=== PATIENT | male | born 1990 | race Caucasian/White ===

== ENCOUNTER 2020-08-06 21:44 | Emergency (ER) | payer MEDICAID ==
[~2020-08-06] VITALS: Ht 167.6 cm; Wt 84.0 kg
[2020-08-06] MEDS ORDERED: SODIUM CHLORIDE 0.9% 1,000 ML IV ONE (23:15)
[2020-08-06] MEDS ORDERED: ACETAMINOPHEN 325MG TABLET PO ONE (23:15)
[2020-08-06] MEDS ORDERED: CLINDAMYCIN 300 MG in DEXTROSE 5% WATER 50 ML IV ONE (23:15)
[2020-08-06] MEDS ORDERED: LIDOCAINE 1%/EPI 1:100,000 10 ML VIAL IJ ONE (23:30)
[2020-08-06] MEDS ORDERED: BACITRACIN ZINC OINT UDPKT TOP ONE (23:30)
[2020-08-06 23:59] LABS: BASOPHILS % 0.8 % (0.0-2.0); EOSINOPHILS % 2.3 % (0.0-5.0); HEMATOCRIT. 40.6 % (42.0-52.0); HEMOGLOBIN. 13.8 g/dL (14.0-18.0); LYMPHOCYTES % 25.3 % (20.0-50.0); MEAN CORPUSCULAR HEMOGLOBIN 29.3 pg (28.0-32.0); MEAN CORPUSCULAR VOLUME 86.6 fL (80.0-94.0); MEAN PLATELET VOLUME 9.1 fl (7.4-10.4); MONOCYTES % 9.2 % (2.0-8.0); NEUTROPHILS % 62.4 % (40.0-76.0); PLATELET 214 x1000/uL (130-400); RED BLOOD CELL COUNT 4.69 mill/uL (4.7-6.1); RED CELL DISTRIBUTION WIDTH 12.9 % (11.6-14.6)
[2020-08-07 00:08] LABS: CHLORIDE 108 mEq/L (98-107)
[2020-08-07 00:11] LABS: PROTHROMBIN TIME 10.9 sec (9.6-11.0)
[2020-08-07] MEDS ORDERED: LIDOCAINE HCL/EPINEPHRINE 1%-EPI 1:100,000 20 ML VIAL INFIL ONE (00:15)
[2020-08-07 02:20] VITALS: BP 130/76
== END 2020-08-07 02:21 | disposition home or self-care (01) ==
LOC: ER 21:44
DX: L02.411 Cutaneous abscess of right axilla (principal); L03.111 Cellulitis of right axilla; Z88.0 Allergy status to penicillin
CPT/HCPCS: 10060; 36415; 80053; 83605; 85025; 85610; 87040; 96365; 99284; A4217; J3490; J7030; J7040; J7060; Z7610

== ENCOUNTER 2020-08-07 23:21 | Emergency (ER) | payer MEDICAID ==
[~2020-08-07] VITALS: Ht 167.6 cm; Wt 82.0 kg
[2020-08-08 00:44] VITALS: BP 123/78
== END 2020-08-08 00:46 | disposition home or self-care (01) ==
LOC: ER 23:21
DX: Z48.00 Encounter for change or removal of nonsurgical wound dressing (principal)
CPT/HCPCS: 99281

== ENCOUNTER 2020-09-22 20:11 | Inpatient (IN) | payer MEDICAID ==
[~2020-09-22] VITALS: Ht 172.7 cm; Wt 77.1 kg
[2020-09-22] MEDS ORDERED: CEFTRIAXONE 1 G PREMIX 50 ML IV ONE (20:30)
[2020-09-22] MEDS ORDERED: AZITHROMYCIN 500 MG in DEXT 5% WATER 250 ML IV ONE (20:30)
[2020-09-22] MEDS ORDERED: ACETAMINOPHEN 325MG TABLET PO ONE (20:30)
[2020-09-22] MEDS ORDERED: SODIUM CHLORIDE 0.9% 500 ML IV ONE (20:30)
[2020-09-22 20:49] LABS: BASOPHILS % 0.2 % (0.0-2.0); HEMATOCRIT. 47.8 % (42.0-52.0); HEMOGLOBIN. 15.7 g/dL (14.0-18.0); LYMPHOCYTES % 13.7 % (20.0-50.0); MEAN CORPUSCULAR HEMOGLOBIN 28.4 pg (28.0-32.0); MEAN CORPUSCULAR VOLUME 86.5 fL (80.0-94.0); MEAN PLATELET VOLUME 8.9 fl (7.4-10.4); MONOCYTES % 4.7 % (2.0-8.0); NEUTROPHILS % 81.4 % (40.0-76.0); PLATELET 203 x1000/uL (130-400); RED BLOOD CELL COUNT 5.53 mill/uL (4.7-6.1); RED CELL DISTRIBUTION WIDTH 13.5 % (11.6-14.6)
[2020-09-22 21:00] LABS: CHLORIDE 105 mEq/L (98-107); INR 1.1; PROTHROMBIN TIME 11.7 sec (9.6-11.0)
[2020-09-23] MEDS ORDERED: ZOLPIDEM TARTRATE 5MG TABLET PO PRN
[2020-09-23] MEDS ORDERED: MAGNESIUM/ALUMINUM HYDROXIDE/SIMETHICONE 30ML UDC PO PRN
[2020-09-23] MEDS ORDERED: ONDANSETRON HCL 4MG/2ML INJ IV PRN
[2020-09-23] MEDS ORDERED: ALBUTEROL 6.7GM HFA INHALER ORI PRN
[2020-09-23] MEDS ORDERED: PROMETHAZINE/DEXTROMETHORPHAN 6.25-15MG/5ML BOTTLE 120ML PO PRN
[2020-09-23] MEDS ORDERED: ACETAMINOPHEN 325MG TABLET PO PRN
[2020-09-23 01:00] VITALS: BP 121/74
[2020-09-23] MEDS ORDERED: DEXAMETHASONE 10 MG/ML VIAL IV NR (01:00)
[2020-09-23] MEDS ORDERED: ERGOCALCIFEROL 50000UNITS CAPSULE PO NR (01:00)
[2020-09-23 01:16] LABS: CLARITY URINE CLEAR (CLEAR); COLOR URINE YELLOW (YELLOW); KETONES URINE NEGATIVE (NEGATIVE); LEUKOCYTE ESTERASE URINE NEGATIVE (NEGATIVE); NITRITE URINE NEGATIVE (NEGATIVE); OCCULT BLOOD URINE NEGATIVE (NEGATIVE); PROTEIN URINE 1+ (NEGATIVE); SPECIFIC GRAVITY URINE 1.012 (1.005-1.030); UROBILINOGEN URINE 0.2 E.U./dL (0.2-1.0)
[2020-09-23] MEDS: ACETAMINOPHEN 325MG TABLET PO PRN (03:02)
[2020-09-23 04:00] VITALS: BP 116/66
[2020-09-23] MEDS: SODIUM CHLORIDE 0.9% INJ 3ML FLUSH IVF SCH ×3 (06:33→22:26)
[2020-09-23] MEDS: OMEPRAZOLE 20MG CAPSULE EXTENDED RELEASE PO SCH ×2 (07:37→20:28)
[2020-09-23 08:00] VITALS: BP 142/100
[2020-09-23] MEDS: DEXAMETHASONE 10 MG/ML VIAL IV SCH (08:11)
[2020-09-23] MEDS: GUAIFENESIN 600MG ER TABLET PO SCH ×2 (08:11→20:28)
[2020-09-23] MEDS: ENOXAPARIN 30MG/0.3ML SYR SUBCUT SCH ×2 (08:11→20:28)
[2020-09-23 12:00] VITALS: BP 111/73
[2020-09-23 16:00] VITALS: BP 116/72
[2020-09-23] MEDS ORDERED: CEFTRIAXONE 1,000 MG in DEXTROSE 5% WATER 50 ML IV SCH ×2 (17:00→20:00)
[2020-09-23] MEDS ORDERED: AZITHROMYCIN 500 MG in DEXT 5% WATER 250 ML IV SCH ×2 (18:00→21:00)
[2020-09-23 20:00] VITALS: BP 116/77
[2020-09-24] VITALS: BP 126/73
[2020-09-24 04:00] VITALS: BP 120/76
[2020-09-24] MEDS: SODIUM CHLORIDE 0.9% INJ 3ML FLUSH IVF SCH ×3 (05:21→21:11)
[2020-09-24 08:00] VITALS: BP 120/78
[2020-09-24] MEDS: ENOXAPARIN 30MG/0.3ML SYR SUBCUT SCH ×2 (08:36→21:09)
[2020-09-24] MEDS: OMEPRAZOLE 20MG CAPSULE EXTENDED RELEASE PO SCH (08:36)
[2020-09-24] MEDS: DEXAMETHASONE 10 MG/ML VIAL IV SCH (08:36)
[2020-09-24] MEDS: GUAIFENESIN 600MG ER TABLET PO SCH ×2 (08:36→21:09)
[2020-09-24 12:00] VITALS: BP 122/79
[2020-09-24 15:53] VITALS: BP 119/75
[2020-09-24] MEDS: ACETAMINOPHEN 325MG TABLET PO PRN (16:00)
[2020-09-24] MEDS: AZITHROMYCIN 250 MG TABLET PO SCH (17:02)
[2020-09-24 20:00] VITALS: BP 111/67
[2020-09-24] MEDS: FAMOTIDINE 20MG TABLET PO SCH (21:09)
[2020-09-25] VITALS: BP 128/76
[2020-09-25] MEDS: SODIUM CHLORIDE 0.9% INJ 3ML FLUSH IVF SCH ×3 (01:30→21:39)
[2020-09-25 04:00] VITALS: BP 119/84
[2020-09-25 08:00] VITALS: BP 126/75
[2020-09-25] MEDS: DEXAMETHASONE 10 MG/ML VIAL IV SCH (08:10)
[2020-09-25] MEDS: ENOXAPARIN 30MG/0.3ML SYR SUBCUT SCH ×2 (08:10→21:39)
[2020-09-25] MEDS: FAMOTIDINE 20MG TABLET PO SCH ×2 (08:10→21:38)
[2020-09-25] MEDS: GUAIFENESIN 600MG ER TABLET PO SCH ×2 (08:10→21:38)
[2020-09-25 12:00] VITALS: BP 117/73
[2020-09-25 16:00] VITALS: BP 122/83
[2020-09-25] MEDS: AZITHROMYCIN 250 MG TABLET PO SCH (17:18)
[2020-09-25 20:00] VITALS: BP 122/82
[2020-09-26] VITALS: BP 114/75
[2020-09-26] MEDS: BENZONATATE 200MG CAPSULE PO PRN (01:56)
[2020-09-26 04:00] VITALS: BP 111/74
[2020-09-26] MEDS: FAMOTIDINE 20MG TABLET PO SCH ×2 (06:35→20:17)
[2020-09-26] MEDS: SODIUM CHLORIDE 0.9% INJ 3ML FLUSH IVF SCH ×3 (06:35→20:29)
[2020-09-26 06:46] LABS: HEMATOCRIT. 42.1 % (42.0-52.0); HEMOGLOBIN. 14.1 g/dL (14.0-18.0); MEAN CORPUSCULAR HEMOGLOBIN 28.7 pg (28.0-32.0); MEAN CORPUSCULAR VOLUME 85.7 fL (80.0-94.0); MEAN PLATELET VOLUME 8.9 fl (7.4-10.4); PLATELET 309 x1000/uL (130-400); RED BLOOD CELL COUNT 4.91 mill/uL (4.7-6.1); RED CELL DISTRIBUTION WIDTH 12.8 % (11.6-14.6)
[2020-09-26 07:02] LABS: CHLORIDE 101 mEq/L (98-107)
[2020-09-26 08:00] VITALS: BP 116/75
[2020-09-26] MEDS: DEXAMETHASONE 10 MG/ML VIAL IV SCH (08:43)
[2020-09-26] MEDS: ENOXAPARIN 30MG/0.3ML SYR SUBCUT SCH ×2 (08:43→20:17)
[2020-09-26] MEDS: GUAIFENESIN 600MG ER TABLET PO SCH ×2 (08:43→20:17)
[2020-09-26 12:00] VITALS: BP 109/73
[2020-09-26 13:21] LABS: PLATELET ESTIMATE NORMAL
[2020-09-26 16:00] VITALS: BP 108/72
[2020-09-26] MEDS: DIPHENHYDRAMINE 50MG/ML VIAL IV PRN (17:43)
[2020-09-26] MEDS: AZITHROMYCIN 250 MG TABLET PO SCH (17:45)
[2020-09-26 20:00] VITALS: BP 115/72
[2020-09-27] VITALS: BP 121/72
[2020-09-27 04:00] VITALS: BP 123/71
[2020-09-27] MEDS: SODIUM CHLORIDE 0.9% INJ 3ML FLUSH IVF SCH ×3 (05:04→20:38)
[2020-09-27 08:00] VITALS: BP 117/71
[2020-09-27] MEDS: DEXAMETHASONE 10 MG/ML VIAL IV SCH (08:42)
[2020-09-27] MEDS: ENOXAPARIN 30MG/0.3ML SYR SUBCUT SCH ×2 (08:42→20:37)
[2020-09-27] MEDS: FAMOTIDINE 20MG TABLET PO SCH ×2 (08:42→20:37)
[2020-09-27] MEDS: ACETAMINOPHEN 325MG TABLET PO PRN (08:43)
[2020-09-27] MEDS: GUAIFENESIN 600MG ER TABLET PO SCH ×2 (08:43→20:37)
[2020-09-27] MEDS: DIPHENHYDRAMINE 50MG/ML VIAL IV PRN ×2 (08:50→21:57)
[2020-09-27 12:00] VITALS: BP 103/53
[2020-09-27 16:00] VITALS: BP 115/72
[2020-09-27 20:00] VITALS: BP 131/71
[2020-09-28] VITALS: BP 113/71
[2020-09-28 04:00] VITALS: BP 108/73
[2020-09-28] MEDS: SODIUM CHLORIDE 0.9% INJ 3ML FLUSH IVF SCH ×2 (05:45→15:30)
[2020-09-28 08:00] VITALS: BP 109/68
[2020-09-28] MEDS: FAMOTIDINE 20MG TABLET PO SCH ×2 (08:18→20:22)
[2020-09-28] MEDS: DEXAMETHASONE 10 MG/ML VIAL IV SCH (08:18)
[2020-09-28] MEDS: GUAIFENESIN 600MG ER TABLET PO SCH ×2 (08:18→20:21)
[2020-09-28] MEDS: ENOXAPARIN 30MG/0.3ML SYR SUBCUT SCH ×2 (08:19→20:22)
[2020-09-28] MEDS: DIPHENHYDRAMINE 50MG/ML VIAL IV PRN ×3 (09:12→20:22)
[2020-09-28 12:00] VITALS: BP 124/72
[2020-09-28 16:00] VITALS: BP 124/77
[2020-09-28 20:00] VITALS: BP 124/71
[2020-09-29] VITALS: BP 121/73
[2020-09-29 04:00] VITALS: BP 111/69
[2020-09-29] MEDS: SODIUM CHLORIDE 0.9% INJ 3ML FLUSH IVF SCH ×3 (05:54→21:00)
[2020-09-29] MEDS: DIPHENHYDRAMINE 50MG/ML VIAL IV PRN ×2 (05:56→23:01)
[2020-09-29 08:00] VITALS: BP 106/51
[2020-09-29] MEDS: ENOXAPARIN 30MG/0.3ML SYR SUBCUT SCH ×2 (08:26→20:46)
[2020-09-29] MEDS: FAMOTIDINE 20MG TABLET PO SCH ×2 (08:26→20:45)
[2020-09-29] MEDS: GUAIFENESIN 600MG ER TABLET PO SCH ×2 (08:26→20:45)
[2020-09-29] MEDS: DEXAMETHASONE 10 MG/ML VIAL IV SCH (09:02)
[2020-09-29 12:00] VITALS: BP 113/68
[2020-09-29 16:00] VITALS: BP 110/61
[2020-09-29] MEDS ORDERED: ERGOCALCIFEROL 50000UNITS CAPSULE PO NR (16:00)
[2020-09-29 20:28] VITALS: BP 110/69
[2020-09-30] VITALS: BP 112/57
[2020-09-30 04:00] VITALS: BP 105/55
[2020-09-30] MEDS: ACETAMINOPHEN 325MG TABLET PO PRN (05:22)
[2020-09-30] MEDS: SODIUM CHLORIDE 0.9% INJ 3ML FLUSH IVF SCH ×3 (05:22→20:53)
[2020-09-30 08:00] VITALS: BP_SYST 112; BP_SYST 177; BP_DIAS 101; BP_DIAS 64
[2020-09-30] MEDS: GUAIFENESIN 600MG ER TABLET PO SCH ×2 (09:56→20:52)
[2020-09-30] MEDS: DEXAMETHASONE 10 MG/ML VIAL IV SCH (09:56)
[2020-09-30] MEDS: FAMOTIDINE 20MG TABLET PO SCH ×2 (09:56→20:52)
[2020-09-30] MEDS: ENOXAPARIN 30MG/0.3ML SYR SUBCUT SCH ×2 (09:56→20:52)
[2020-09-30 10:03] LABS: BG BASE EXCESS 2.1 mmol/L (-2.0-2.0); BG CARBOXYHEMOGLOBIN 0.2 % (0.5-1.5); BG DEOXYHEMOGLOBIN 6.4 % (0.0-5.0); BG FRACTION INSPIRED OXYGEN 100; BG HCO3 ACT 24.9 mmol/L (22.0-26.0); BG METHEMOGLOBIN 0.3 % (0.0-1.5); BG OXYGEN SATURATION 93.6 % (92.0-98.5); BG OXYHEMOGLOBIN 93.1 % (94.0-97.0); BG PCO2 33.7 mmHg (35.0-45.0); BG PH 7.487 (7.350-7.450); BG PO2 65.9 mmHg (75.0-100.0); BG SAMPLE SITE RIGHT RADIAL; BG TOTAL HEMOGLOBIN 15.4 g/dL (12.0-18.0); BG VENT MODE MASK - NRB
[2020-09-30 12:00] VITALS: BP 113/68
[2020-09-30 16:00] VITALS: BP 115/73
[2020-09-30] MEDS: METHYLPREDNISOLONE SOD SUCC 40 MG/ML VIAL IV SCH (17:50)
[2020-09-30 20:00] VITALS: BP 103/65
[2020-10-01] VITALS: BP 99/57
[2020-10-01] MEDS: METHYLPREDNISOLONE SOD SUCC 40 MG/ML VIAL IV SCH ×3 (00:43→17:32)
[2020-10-01] MEDS: SODIUM CHLORIDE 0.9% INJ 3ML FLUSH IVF SCH ×3 (00:51→21:40)
[2020-10-01 04:00] VITALS: BP 101/68
[2020-10-01 08:00] VITALS: BP 114/65
[2020-10-01] MEDS: GUAIFENESIN 600MG ER TABLET PO SCH ×2 (08:25→21:39)
[2020-10-01] MEDS: FAMOTIDINE 20MG TABLET PO SCH ×2 (08:25→21:39)
[2020-10-01] MEDS: ENOXAPARIN 30MG/0.3ML SYR SUBCUT SCH ×2 (08:25→21:40)
[2020-10-01] MEDS: ACETAMINOPHEN 325MG TABLET PO PRN ×2 (08:26→14:28)
[2020-10-01 12:00] VITALS: BP 103/65
[2020-10-01 16:00] VITALS: BP 125/74
[2020-10-01] MEDS: BENZONATATE 200MG CAPSULE PO PRN (17:33)
[2020-10-01 20:00] VITALS: BP 120/74
[2020-10-02] VITALS (7 sets, daily range): BP systolic 98–133; BP diastolic 47–86
[2020-10-02] MEDS: METHYLPREDNISOLONE SOD SUCC 40 MG/ML VIAL IV SCH ×3 (01:28→17:14)
[2020-10-02] MEDS: SODIUM CHLORIDE 0.9% INJ 3ML FLUSH IVF SCH ×3 (06:00→22:49)
[2020-10-02 06:32] LABS: CHLORIDE 103 mEq/L (98-107)
[2020-10-02 06:38] LABS: HEMATOCRIT. 41.7 % (42.0-52.0); HEMOGLOBIN. 14.1 g/dL (14.0-18.0); MEAN CORPUSCULAR HEMOGLOBIN 29.5 pg (28.0-32.0); PHOSPHORUS 3.2 mg/dL (2.5-4.9); PLATELET 405 x1000/uL (130-400); RED BLOOD CELL COUNT 4.79 mill/uL (4.7-6.1); RED CELL DISTRIBUTION WIDTH 13.2 % (11.6-14.6)
[2020-10-02 06:40] LABS: CREATINE KINASE 37 IU/L (39-308)
[2020-10-02] MEDS: FAMOTIDINE 20MG TABLET PO SCH ×2 (08:01→20:37)
[2020-10-02] MEDS: GUAIFENESIN 600MG ER TABLET PO SCH ×2 (08:01→20:37)
[2020-10-02] MEDS: ENOXAPARIN 30MG/0.3ML SYR SUBCUT SCH ×2 (08:01→20:36)
[2020-10-02] MEDS ORDERED: IPRATROPIUM/ALBUTEROL 0.5-3(2.5)MG/3ML NEB HHN PRN (13:00)
[2020-10-02 18:20] LABS: PLATELET ESTIMATE INCREASED
[2020-10-02] MEDS: IPRATROPIUM/ALBUTEROL 0.5-3(2.5)MG/3ML NEB HHN SCH (21:16)
[2020-10-03] VITALS (9 sets, daily range): BP systolic 111–157; BP diastolic 56–100
[2020-10-03] MEDS: METHYLPREDNISOLONE SOD SUCC 40 MG/ML VIAL IV SCH ×3 (01:26→16:33)
[2020-10-03] MEDS: IPRATROPIUM/ALBUTEROL 0.5-3(2.5)MG/3ML NEB HHN SCH ×4 (02:40→21:14)
[2020-10-03] MEDS: SODIUM CHLORIDE 0.9% INJ 3ML FLUSH IVF SCH ×3 (05:42→21:33)
[2020-10-03] MEDS: FAMOTIDINE 20MG TABLET PO SCH ×2 (09:17→21:33)
[2020-10-03] MEDS: ENOXAPARIN 30MG/0.3ML SYR SUBCUT SCH ×2 (09:18→21:33)
[2020-10-03] MEDS: GUAIFENESIN 600MG ER TABLET PO SCH ×2 (09:23→21:33)
[2020-10-04] VITALS (16 sets, daily range): BP systolic 113–144; BP diastolic 58–78
[2020-10-04] MEDS ORDERED: OXYMETAZOLINE HCL NASAL SPRAY 15ML BOTHNSTRLS PRN (00:15)
[2020-10-04] MEDS: METHYLPREDNISOLONE SOD SUCC 40 MG/ML VIAL IV SCH ×3 (01:19→17:36)
[2020-10-04] MEDS: IPRATROPIUM/ALBUTEROL 0.5-3(2.5)MG/3ML NEB HHN SCH ×4 (02:24→20:50)
[2020-10-04] MEDS: SODIUM CHLORIDE 0.9% INJ 3ML FLUSH IVF SCH ×3 (06:16→22:59)
[2020-10-04] MEDS: FAMOTIDINE 20MG TABLET PO SCH ×2 (10:05→20:46)
[2020-10-04] MEDS: GUAIFENESIN 600MG ER TABLET PO SCH ×2 (10:05→20:46)
[2020-10-04] MEDS: ENOXAPARIN 30MG/0.3ML SYR SUBCUT SCH ×2 (10:06→20:47)
[2020-10-04] MEDS ORDERED: ALPRAZOLAM 0.5 MG TABLET PO PRN (16:45)
[2020-10-05] VITALS (12 sets, daily range): BP systolic 111–149; BP diastolic 60–87
[2020-10-05] MEDS: METHYLPREDNISOLONE SOD SUCC 40 MG/ML VIAL IV SCH ×3 (00:30→16:44)
[2020-10-05] MEDS: IPRATROPIUM/ALBUTEROL 0.5-3(2.5)MG/3ML NEB HHN SCH ×4 (02:14→20:35)
[2020-10-05] MEDS: FAMOTIDINE 20MG TABLET PO SCH ×2 (06:33→20:37)
[2020-10-05] MEDS: SODIUM CHLORIDE 0.9% INJ 3ML FLUSH IVF SCH ×3 (06:38→22:00)
[2020-10-05] MEDS: GUAIFENESIN 600MG ER TABLET PO SCH ×2 (08:14→20:37)
[2020-10-05] MEDS: ENOXAPARIN 30MG/0.3ML SYR SUBCUT SCH ×2 (08:17→20:37)
[2020-10-05] MEDS: METOPROLOL TARTRATE 25MG TABLET PO SCH (20:37)
[2020-10-06] VITALS (12 sets, daily range): BP systolic 111–143; BP diastolic 58–84
[2020-10-06] MEDS: METHYLPREDNISOLONE SOD SUCC 40 MG/ML VIAL IV SCH ×3 (01:21→17:03)
[2020-10-06] MEDS: IPRATROPIUM/ALBUTEROL 0.5-3(2.5)MG/3ML NEB HHN SCH ×4 (02:13→21:01)
[2020-10-06] MEDS: SODIUM CHLORIDE 0.9% INJ 3ML FLUSH IVF SCH ×3 (05:42→21:05)
[2020-10-06] MEDS: METOPROLOL TARTRATE 25MG TABLET PO SCH ×2 (09:00→21:04)
[2020-10-06] MEDS: FAMOTIDINE 20MG TABLET PO SCH ×2 (09:00→21:03)
[2020-10-06] MEDS: ENOXAPARIN 30MG/0.3ML SYR SUBCUT SCH ×2 (09:00→21:03)
[2020-10-06] MEDS: GUAIFENESIN 600MG ER TABLET PO SCH ×2 (09:00→21:04)
[2020-10-06] MEDS: ERGOCALCIFEROL 50000UNITS CAPSULE PO SCH (14:16)
[2020-10-06] MEDS: ASCORBIC ACID 500 MG TABLET PO SCH (21:04)
[2020-10-07] VITALS (12 sets, daily range): BP systolic 101–135; BP diastolic 55–82
[2020-10-07] MEDS: METHYLPREDNISOLONE SOD SUCC 40 MG/ML VIAL IV SCH ×3 (00:53→17:30)
[2020-10-07] MEDS: IPRATROPIUM/ALBUTEROL 0.5-3(2.5)MG/3ML NEB HHN SCH ×4 (01:58→21:35)
[2020-10-07] MEDS: SODIUM CHLORIDE 0.9% INJ 3ML FLUSH IVF SCH ×2 (05:16→17:30)
[2020-10-07 06:20] LABS: MEAN CORPUSCULAR VOLUME 86.7 fL (80.0-94.0); MEAN PLATELET VOLUME 9.2 fl (7.4-10.4); PLATELET 305 x1000/uL (130-400); RED BLOOD CELL COUNT 5.19 mill/uL (4.7-6.1); RED CELL DISTRIBUTION WIDTH 13.2 % (11.6-14.6)
[2020-10-07 07:18] LABS: CHLORIDE 100 mEq/L (98-107)
[2020-10-07] MEDS: ASCORBIC ACID 500 MG TABLET PO SCH ×2 (08:02→21:37)
[2020-10-07] MEDS: FAMOTIDINE 20MG TABLET PO SCH ×2 (08:03→21:35)
[2020-10-07] MEDS: GUAIFENESIN 600MG ER TABLET PO SCH ×2 (08:03→21:37)
[2020-10-07] MEDS: METOPROLOL TARTRATE 25MG TABLET PO SCH ×2 (08:03→21:37)
[2020-10-07] MEDS: ENOXAPARIN 30MG/0.3ML SYR SUBCUT SCH ×2 (08:04→21:35)
[2020-10-07 16:56] LABS: PLATELET ESTIMATE NORMAL
[2020-10-08] VITALS (12 sets, daily range): BP systolic 111–134; BP diastolic 60–79
[2020-10-08] MEDS: METHYLPREDNISOLONE SOD SUCC 40 MG/ML VIAL IV SCH ×3 (00:07→16:44)
[2020-10-08] MEDS: SODIUM CHLORIDE 0.9% INJ 3ML FLUSH IVF SCH ×4 (00:07→22:00)
[2020-10-08] MEDS: IPRATROPIUM/ALBUTEROL 0.5-3(2.5)MG/3ML NEB HHN SCH ×3 (02:47→20:42)
[2020-10-08] MEDS: FAMOTIDINE 20MG TABLET PO SCH ×2 (08:28→20:13)
[2020-10-08] MEDS: METOPROLOL TARTRATE 25MG TABLET PO SCH ×2 (08:29→20:14)
[2020-10-08] MEDS: ASCORBIC ACID 500 MG TABLET PO SCH ×2 (08:29→20:13)
[2020-10-08] MEDS: ENOXAPARIN 30MG/0.3ML SYR SUBCUT SCH ×2 (08:29→20:13)
[2020-10-08] MEDS: GUAIFENESIN 600MG ER TABLET PO SCH ×2 (08:36→20:13)
[2020-10-08 13:54] LABS: HEPATITIS B SURFACE ANTIGEN NEGATIVE
[2020-10-09] VITALS (12 sets, daily range): BP systolic 105–143; BP diastolic 55–86
[2020-10-09] MEDS: METHYLPREDNISOLONE SOD SUCC 40 MG/ML VIAL IV SCH ×3 (01:19→18:29)
[2020-10-09] MEDS: SODIUM CHLORIDE 0.9% INJ 3ML FLUSH IVF SCH ×3 (06:00→21:24)
[2020-10-09] MEDS: IPRATROPIUM/ALBUTEROL 0.5-3(2.5)MG/3ML NEB HHN SCH ×3 (08:41→20:44)
[2020-10-09] MEDS: METOPROLOL TARTRATE 25MG TABLET PO SCH ×2 (09:41→21:24)
[2020-10-09] MEDS: FAMOTIDINE 20MG TABLET PO SCH ×2 (09:41→21:23)
[2020-10-09] MEDS: GUAIFENESIN 600MG ER TABLET PO SCH ×2 (09:41→21:23)
[2020-10-09] MEDS: ASCORBIC ACID 500 MG TABLET PO SCH ×2 (09:41→21:23)
[2020-10-09] MEDS: ENOXAPARIN 30MG/0.3ML SYR SUBCUT SCH ×2 (09:41→21:22)
[2020-10-10] VITALS (12 sets, daily range): BP systolic 105–128; BP diastolic 53–73
[2020-10-10] MEDS: METHYLPREDNISOLONE SOD SUCC 40 MG/ML VIAL IV SCH ×3 (01:00→17:46)
[2020-10-10] MEDS: IPRATROPIUM/ALBUTEROL 0.5-3(2.5)MG/3ML NEB HHN SCH ×4 (01:13→20:25)
[2020-10-10] MEDS: SODIUM CHLORIDE 0.9% INJ 3ML FLUSH IVF SCH ×3 (06:00→20:53)
[2020-10-10 06:31] LABS: HEMATOCRIT. 44.6 % (42.0-52.0); HEMOGLOBIN. 14.9 g/dL (14.0-18.0); MEAN CORPUSCULAR HEMOGLOBIN 29.1 pg (28.0-32.0); MEAN PLATELET VOLUME 9.2 fl (7.4-10.4); PLATELET 258 x1000/uL (130-400); RED BLOOD CELL COUNT 5.13 mill/uL (4.7-6.1); RED CELL DISTRIBUTION WIDTH 13.1 % (11.6-14.6)
[2020-10-10 07:56] LABS: PLATELET ESTIMATE NORMAL
[2020-10-10 08:07] LABS: CHLORIDE 101 mEq/L (98-107)
[2020-10-10 08:13] LABS: C REACTIVE PROTEIN QUANT 5.6 mg/L (0.0-3.0)
[2020-10-10] MEDS: GUAIFENESIN 600MG ER TABLET PO SCH ×2 (08:44→20:52)
[2020-10-10] MEDS: ASCORBIC ACID 500 MG TABLET PO SCH ×2 (08:45→20:52)
[2020-10-10] MEDS: FAMOTIDINE 20MG TABLET PO SCH ×2 (08:45→20:52)
[2020-10-10] MEDS: METOPROLOL TARTRATE 25MG TABLET PO SCH ×2 (08:45→20:53)
[2020-10-10] MEDS: ENOXAPARIN 30MG/0.3ML SYR SUBCUT SCH ×2 (08:52→20:52)
[2020-10-10 09:19] LABS: BG BASE EXCESS 2.8 mmol/L (-2.0-2.0); BG CARBOXYHEMOGLOBIN 0.4 % (0.5-1.5); BG DEOXYHEMOGLOBIN 9.6 % (0.0-5.0); BG FRACTION INSPIRED OXYGEN 100; BG HCO3 ACT 26.4 mmol/L (22.0-26.0); BG METHEMOGLOBIN 0.3 % (0.0-1.5); BG OXYGEN SATURATION 90.3 % (92.0-98.5); BG OXYHEMOGLOBIN 89.7 % (94.0-97.0); BG PCO2 37.5 mmHg (35.0-45.0); BG PH 7.466 (7.350-7.450); BG PO2 55.4 mmHg (75.0-100.0); BG SAMPLE SITE RIGHT RADIAL; BG TOTAL HEMOGLOBIN 16.2 g/dL (12.0-18.0); BG VENT MODE HIGH FLOW
[2020-10-10] MEDS ORDERED: TEMAZEPAM 15MG CAPSULE PO PRN (16:15)
[2020-10-11] VITALS (12 sets, daily range): BP systolic 92–135; BP diastolic 46–95
[2020-10-11] MEDS: METHYLPREDNISOLONE SOD SUCC 40 MG/ML VIAL IV SCH ×3 (01:40→16:34)
[2020-10-11] MEDS: IPRATROPIUM/ALBUTEROL 0.5-3(2.5)MG/3ML NEB HHN SCH ×4 (01:55→20:45)
[2020-10-11] MEDS: SODIUM CHLORIDE 0.9% INJ 3ML FLUSH IVF SCH ×3 (06:04→20:12)
[2020-10-11] MEDS: FAMOTIDINE 20MG TABLET PO SCH ×2 (08:37→20:11)
[2020-10-11] MEDS: ENOXAPARIN 30MG/0.3ML SYR SUBCUT SCH ×2 (08:37→20:11)
[2020-10-11] MEDS: ASCORBIC ACID 500 MG TABLET PO SCH ×2 (08:37→20:11)
[2020-10-11] MEDS: GUAIFENESIN 600MG ER TABLET PO SCH ×2 (08:37→20:11)
[2020-10-11] MEDS: METOPROLOL TARTRATE 25MG TABLET PO SCH ×2 (08:39→20:12)
[2020-10-11 17:10] LABS: 25-HYDROXY VITAMIN D3 14 ng/mL (.)
[2020-10-12] VITALS (12 sets, daily range): BP systolic 108–130; BP diastolic 63–81
[2020-10-12] MEDS: METHYLPREDNISOLONE SOD SUCC 40 MG/ML VIAL IV SCH ×3 (00:51→20:03)
[2020-10-12] MEDS ORDERED: TEMAZEPAM 15MG CAPSULE PO NR (02:15)
[2020-10-12] MEDS: IPRATROPIUM/ALBUTEROL 0.5-3(2.5)MG/3ML NEB HHN SCH ×4 (02:36→20:27)
[2020-10-12] MEDS: SODIUM CHLORIDE 0.9% INJ 3ML FLUSH IVF SCH ×3 (06:10→21:23)
[2020-10-12] MEDS: ASCORBIC ACID 500 MG TABLET PO SCH ×2 (09:30→20:03)
[2020-10-12] MEDS: METOPROLOL TARTRATE 25MG TABLET PO SCH ×2 (09:32→20:03)
[2020-10-12] MEDS: GUAIFENESIN 600MG ER TABLET PO SCH ×2 (09:32→20:03)
[2020-10-12] MEDS: FAMOTIDINE 20MG TABLET PO SCH ×2 (09:32→20:03)
[2020-10-12] MEDS: ENOXAPARIN 30MG/0.3ML SYR SUBCUT SCH ×2 (09:33→20:04)
[2020-10-13] VITALS (12 sets, daily range): BP systolic 110–135; BP diastolic 59–82
[2020-10-13] MEDS: TEMAZEPAM 15MG CAPSULE PO PRN (00:20)
[2020-10-13] MEDS: IPRATROPIUM/ALBUTEROL 0.5-3(2.5)MG/3ML NEB HHN SCH ×4 (02:15→20:09)
[2020-10-13] MEDS: SODIUM CHLORIDE 0.9% INJ 3ML FLUSH IVF SCH ×3 (05:28→22:00)
[2020-10-13] MEDS: BENZONATATE 200MG CAPSULE PO PRN ×2 (06:46→16:42)
[2020-10-13] MEDS: METOPROLOL TARTRATE 25MG TABLET PO SCH ×2 (08:38→22:02)
[2020-10-13] MEDS: METHYLPREDNISOLONE SOD SUCC 40 MG/ML VIAL IV SCH ×2 (08:38→22:03)
[2020-10-13] MEDS: FAMOTIDINE 20MG TABLET PO SCH ×2 (08:38→22:02)
[2020-10-13] MEDS: ERGOCALCIFEROL 50000UNITS CAPSULE PO SCH (08:39)
[2020-10-13] MEDS: GUAIFENESIN 600MG ER TABLET PO SCH ×2 (08:39→22:02)
[2020-10-13] MEDS: ASCORBIC ACID 500 MG TABLET PO SCH ×2 (08:39→22:02)
[2020-10-13] MEDS: ENOXAPARIN 30MG/0.3ML SYR SUBCUT SCH ×2 (08:39→22:03)
[2020-10-14] VITALS (14 sets, daily range): BP systolic 99–129; BP diastolic 59–85
[2020-10-14] MEDS: IPRATROPIUM/ALBUTEROL 0.5-3(2.5)MG/3ML NEB HHN SCH ×5 (01:19→20:18)
[2020-10-14] MEDS: DIPHENHYDRAMINE 50MG/ML VIAL IV PRN (01:43)
[2020-10-14] MEDS: SODIUM CHLORIDE 0.9% INJ 3ML FLUSH IVF SCH ×3 (05:52→22:01)
[2020-10-14] MEDS: FAMOTIDINE 20MG TABLET PO SCH ×2 (07:25→21:35)
[2020-10-14] MEDS: METHYLPREDNISOLONE SOD SUCC 40 MG/ML VIAL IV SCH ×2 (09:03→22:03)
[2020-10-14] MEDS: ENOXAPARIN 30MG/0.3ML SYR SUBCUT SCH ×2 (09:04→21:42)
[2020-10-14] MEDS: ASCORBIC ACID 500 MG TABLET PO SCH ×2 (09:04→21:41)
[2020-10-14] MEDS: METOPROLOL TARTRATE 25MG TABLET PO SCH ×2 (09:05→21:41)
[2020-10-14] MEDS: GUAIFENESIN 600MG ER TABLET PO SCH ×2 (09:15→21:41)
[2020-10-14] MEDS: TEMAZEPAM 15MG CAPSULE PO PRN (21:46)
[2020-10-15] VITALS (11 sets, daily range): BP systolic 97–125; BP diastolic 52–87
[2020-10-15] MEDS: IPRATROPIUM/ALBUTEROL 0.5-3(2.5)MG/3ML NEB HHN SCH ×4 (01:08→20:44)
[2020-10-15] MEDS: SODIUM CHLORIDE 0.9% INJ 3ML FLUSH IVF SCH ×3 (05:32→22:00)
[2020-10-15] MEDS: ENOXAPARIN 30MG/0.3ML SYR SUBCUT SCH ×2 (08:42→20:35)
[2020-10-15] MEDS: METHYLPREDNISOLONE SOD SUCC 40 MG/ML VIAL IV SCH ×2 (08:42→20:36)
[2020-10-15] MEDS: ASCORBIC ACID 500 MG TABLET PO SCH ×2 (08:42→20:35)
[2020-10-15] MEDS: FAMOTIDINE 20MG TABLET PO SCH ×2 (08:42→20:36)
[2020-10-15] MEDS: METOPROLOL TARTRATE 25MG TABLET PO SCH (08:43)
[2020-10-15] MEDS: GUAIFENESIN 600MG ER TABLET PO SCH ×2 (12:29→20:35)
[2020-10-15] MEDS: METOPROLOL TARTRATE 50MG TABLET PO SCH (20:36)
[2020-10-15] MEDS: TEMAZEPAM 15MG CAPSULE PO PRN (21:25)
[2020-10-16] VITALS (12 sets, daily range): BP systolic 93–130; BP diastolic 44–85
[2020-10-16] MEDS: IPRATROPIUM/ALBUTEROL 0.5-3(2.5)MG/3ML NEB HHN SCH ×4 (02:56→20:56)
[2020-10-16] MEDS: BENZONATATE 200MG CAPSULE PO PRN ×2 (04:27→17:18)
[2020-10-16] MEDS: SODIUM CHLORIDE 0.9% INJ 3ML FLUSH IVF SCH ×3 (05:30→22:59)
[2020-10-16] MEDS: FAMOTIDINE 20MG TABLET PO SCH ×2 (07:39→20:37)
[2020-10-16] MEDS: METHYLPREDNISOLONE SOD SUCC 40 MG/ML VIAL IV SCH ×2 (09:05→20:37)
[2020-10-16] MEDS: GUAIFENESIN 600MG ER TABLET PO SCH ×2 (09:05→20:37)
[2020-10-16] MEDS: ASCORBIC ACID 500 MG TABLET PO SCH ×2 (09:06→20:37)
[2020-10-16] MEDS: ENOXAPARIN 30MG/0.3ML SYR SUBCUT SCH ×2 (09:06→20:36)
[2020-10-16] MEDS: METOPROLOL TARTRATE 50MG TABLET PO SCH ×2 (09:06→20:37)
[2020-10-16] MEDS: TEMAZEPAM 15MG CAPSULE PO PRN (20:36)
[2020-10-17] VITALS (12 sets, daily range): BP systolic 101–134; BP diastolic 56–72
[2020-10-17] MEDS: IPRATROPIUM/ALBUTEROL 0.5-3(2.5)MG/3ML NEB HHN SCH ×4 (00:48→21:34)
[2020-10-17] MEDS: TEMAZEPAM 15MG CAPSULE PO PRN (02:02)
[2020-10-17] MEDS: SODIUM CHLORIDE 0.9% INJ 3ML FLUSH IVF SCH ×3 (05:24→21:15)
[2020-10-17 06:29] LABS: HEMATOCRIT. 42.8 % (42.0-52.0); HEMOGLOBIN. 14.3 g/dL (14.0-18.0); MEAN CORPUSCULAR HEMOGLOBIN 29.4 pg (28.0-32.0); MEAN CORPUSCULAR VOLUME 88.2 fL (80.0-94.0); MEAN PLATELET VOLUME 8.4 fl (7.4-10.4); PLATELET 206 x1000/uL (130-400); RED BLOOD CELL COUNT 4.86 mill/uL (4.7-6.1); RED CELL DISTRIBUTION WIDTH 13.9 % (11.6-14.6)
[2020-10-17 06:30] LABS: CHLORIDE 105 mEq/L (98-107)
[2020-10-17 06:43] LABS: PHOSPHORUS 4.7 mg/dL (2.5-4.9)
[2020-10-17] MEDS: ENOXAPARIN 30MG/0.3ML SYR SUBCUT SCH ×2 (09:43→21:14)
[2020-10-17] MEDS: METOPROLOL TARTRATE 50MG TABLET PO SCH ×2 (09:43→21:14)
[2020-10-17] MEDS: FAMOTIDINE 20MG TABLET PO SCH ×2 (09:43→21:13)
[2020-10-17] MEDS: ASCORBIC ACID 500 MG TABLET PO SCH ×2 (09:43→21:13)
[2020-10-17] MEDS: METHYLPREDNISOLONE SOD SUCC 40 MG/ML VIAL IV SCH ×2 (09:43→21:13)
[2020-10-17] MEDS: GUAIFENESIN 600MG ER TABLET PO SCH ×2 (09:43→21:13)
[2020-10-17] MEDS: BENZONATATE 200MG CAPSULE PO PRN (09:49)
[2020-10-17 21:36] LABS: PLATELET ESTIMATE NORMAL
[2020-10-18] VITALS (12 sets, daily range): BP systolic 99–124; BP diastolic 57–83
[2020-10-18] MEDS: BENZONATATE 200MG CAPSULE PO PRN (01:42)
[2020-10-18] MEDS: IPRATROPIUM/ALBUTEROL 0.5-3(2.5)MG/3ML NEB HHN SCH ×3 (01:43→15:00)
[2020-10-18] MEDS: TEMAZEPAM 15MG CAPSULE PO PRN (03:06)
[2020-10-18] MEDS: SODIUM CHLORIDE 0.9% INJ 3ML FLUSH IVF SCH ×3 (06:19→20:31)
[2020-10-18] MEDS: ASCORBIC ACID 500 MG TABLET PO SCH ×2 (08:52→20:31)
[2020-10-18] MEDS: FAMOTIDINE 20MG TABLET PO SCH ×2 (08:52→20:31)
[2020-10-18] MEDS: GUAIFENESIN 600MG ER TABLET PO SCH ×2 (08:52→20:31)
[2020-10-18] MEDS: METOPROLOL TARTRATE 50MG TABLET PO SCH ×2 (08:52→20:31)
[2020-10-18] MEDS: METHYLPREDNISOLONE SOD SUCC 40 MG/ML VIAL IV SCH ×2 (08:53→20:31)
[2020-10-18] MEDS: ENOXAPARIN 30MG/0.3ML SYR SUBCUT SCH (20:31)
[2020-10-19] VITALS (12 sets, daily range): BP systolic 106–147; BP diastolic 53–81
[2020-10-19] MEDS: TEMAZEPAM 15MG CAPSULE PO PRN (00:04)
[2020-10-19] MEDS: IPRATROPIUM/ALBUTEROL 0.5-3(2.5)MG/3ML NEB HHN SCH ×4 (01:55→20:16)
[2020-10-19] MEDS: SODIUM CHLORIDE 0.9% INJ 3ML FLUSH IVF SCH ×3 (04:48→20:21)
[2020-10-19] MEDS: METHYLPREDNISOLONE SOD SUCC 40 MG/ML VIAL IV SCH ×2 (08:17→20:20)
[2020-10-19] MEDS: FAMOTIDINE 20MG TABLET PO SCH ×2 (08:17→20:20)
[2020-10-19] MEDS: METOPROLOL TARTRATE 50MG TABLET PO SCH ×2 (08:17→20:22)
[2020-10-19] MEDS: ASCORBIC ACID 500 MG TABLET PO SCH ×2 (08:18→20:20)
[2020-10-19] MEDS: GUAIFENESIN 600MG ER TABLET PO SCH ×2 (08:18→20:20)
[2020-10-19] MEDS: ENOXAPARIN 30MG/0.3ML SYR SUBCUT SCH ×2 (08:20→20:20)
[2020-10-20] VITALS (12 sets, daily range): BP systolic 103–121; BP diastolic 48–66
[2020-10-20] MEDS: IPRATROPIUM/ALBUTEROL 0.5-3(2.5)MG/3ML NEB HHN SCH ×4 (01:04→20:56)
[2020-10-20] MEDS: TEMAZEPAM 15MG CAPSULE PO PRN (01:36)
[2020-10-20] MEDS: SODIUM CHLORIDE 0.9% INJ 3ML FLUSH IVF SCH ×2 (06:06→22:00)
[2020-10-20] MEDS: ERGOCALCIFEROL 50000UNITS CAPSULE PO SCH (08:43)
[2020-10-20] MEDS: FAMOTIDINE 20MG TABLET PO SCH ×2 (08:43→21:00)
[2020-10-20] MEDS: METHYLPREDNISOLONE SOD SUCC 40 MG/ML VIAL IV SCH ×2 (08:43→21:48)
[2020-10-20] MEDS: GUAIFENESIN 600MG ER TABLET PO SCH ×2 (08:43→21:49)
[2020-10-20] MEDS: METOPROLOL TARTRATE 50MG TABLET PO SCH ×2 (08:43→21:00)
[2020-10-20] MEDS: ASCORBIC ACID 500 MG TABLET PO SCH ×2 (08:43→21:49)
[2020-10-20] MEDS: ENOXAPARIN 30MG/0.3ML SYR SUBCUT SCH ×2 (08:44→21:49)
[2020-10-20] MEDS: BENZONATATE 200MG CAPSULE PO PRN ×2 (10:12→18:00)
[2020-10-21] VITALS (12 sets, daily range): BP systolic 98–121; BP diastolic 50–85
[2020-10-21] MEDS: IPRATROPIUM/ALBUTEROL 0.5-3(2.5)MG/3ML NEB HHN SCH ×4 (01:40→20:42)
[2020-10-21] MEDS: TEMAZEPAM 15MG CAPSULE PO PRN ×2 (03:11→21:55)
[2020-10-21] MEDS: SODIUM CHLORIDE 0.9% INJ 3ML FLUSH IVF SCH (05:22)
[2020-10-21] MEDS: METOPROLOL TARTRATE 50MG TABLET PO SCH ×2 (08:04→08:51)
[2020-10-21] MEDS: METHYLPREDNISOLONE SOD SUCC 40 MG/ML VIAL IV SCH ×2 (08:15→21:55)
[2020-10-21] MEDS: ENOXAPARIN 30MG/0.3ML SYR SUBCUT SCH ×2 (08:16→21:56)
[2020-10-21] MEDS: GUAIFENESIN 600MG ER TABLET PO SCH ×2 (08:16→21:55)
[2020-10-21] MEDS: ASCORBIC ACID 500 MG TABLET PO SCH ×2 (08:16→21:55)
[2020-10-21] MEDS: FAMOTIDINE 20MG TABLET PO SCH ×2 (08:17→21:55)
[2020-10-22] VITALS (12 sets, daily range): BP systolic 101–128; BP diastolic 43–69
[2020-10-22] MEDS: IPRATROPIUM/ALBUTEROL 0.5-3(2.5)MG/3ML NEB HHN SCH ×4 (01:02→20:36)
[2020-10-22] MEDS: ASCORBIC ACID 500 MG TABLET PO SCH ×2 (09:05→21:22)
[2020-10-22] MEDS: METOPROLOL TARTRATE 50MG TABLET PO SCH ×2 (09:06→21:00)
[2020-10-22] MEDS: METHYLPREDNISOLONE SOD SUCC 40 MG/ML VIAL IV SCH ×2 (09:07→21:22)
[2020-10-22] MEDS: ENOXAPARIN 30MG/0.3ML SYR SUBCUT SCH ×2 (09:07→21:22)
[2020-10-22] MEDS: TEMAZEPAM 15MG CAPSULE PO PRN (23:58)
[2020-10-23] VITALS (12 sets, daily range): BP systolic 94–124; BP diastolic 51–71
[2020-10-23] MEDS: IPRATROPIUM/ALBUTEROL 0.5-3(2.5)MG/3ML NEB HHN SCH ×4 (01:00→21:03)
[2020-10-23] MEDS: METHYLPREDNISOLONE SOD SUCC 40 MG/ML VIAL IV SCH ×2 (08:50→21:45)
[2020-10-23] MEDS: ENOXAPARIN 30MG/0.3ML SYR SUBCUT SCH ×2 (08:51→21:44)
[2020-10-23] MEDS: ASCORBIC ACID 500 MG TABLET PO SCH ×2 (08:51→21:47)
[2020-10-23] MEDS: METOPROLOL TARTRATE 50MG TABLET PO SCH ×2 (08:51→21:00)
[2020-10-24] VITALS (12 sets, daily range): BP systolic 102–128; BP diastolic 42–85
[2020-10-24] MEDS: IPRATROPIUM/ALBUTEROL 0.5-3(2.5)MG/3ML NEB HHN SCH ×4 (01:04→20:22)
[2020-10-24] MEDS: METOPROLOL TARTRATE 50MG TABLET PO SCH ×2 (08:44→20:57)
[2020-10-24] MEDS: ASCORBIC ACID 500 MG TABLET PO SCH ×2 (08:45→20:57)
[2020-10-24] MEDS: METHYLPREDNISOLONE SOD SUCC 40 MG/ML VIAL IV SCH ×2 (08:45→20:56)
[2020-10-24 09:38] LABS: BG BASE EXCESS 3.9 mmol/L (-2.0-2.0); BG CARBOXYHEMOGLOBIN 0.7 % (0.5-1.5); BG DEOXYHEMOGLOBIN 3.6 % (0.0-5.0); BG FRACTION INSPIRED OXYGEN 100; BG HCO3 ACT 27.5 mmol/L (22.0-26.0); BG METHEMOGLOBIN 0.3 % (0.0-1.5); BG OXYGEN SATURATION 96.4 % (92.0-98.5); BG OXYHEMOGLOBIN 95.4 % (94.0-97.0); BG PCO2 38.1 mmHg (35.0-45.0); BG PH 7.476 (7.350-7.450); BG PO2 81.4 mmHg (75.0-100.0); BG SAMPLE SITE RIGHT RADIAL; BG TOTAL HEMOGLOBIN 14.2 g/dL (12.0-18.0); BG VENT MODE VAPOTHERM
[2020-10-24 11:02] LABS: HEMATOCRIT. 42.1 % (42.0-52.0); HEMOGLOBIN. 14.2 g/dL (14.0-18.0); MEAN CORPUSCULAR HEMOGLOBIN 29.3 pg (28.0-32.0); MEAN CORPUSCULAR VOLUME 86.9 fL (80.0-94.0); MEAN PLATELET VOLUME 7.9 fl (7.4-10.4); PLATELET 220 x1000/uL (130-400); RED BLOOD CELL COUNT 4.84 mill/uL (4.7-6.1); RED CELL DISTRIBUTION WIDTH 14.8 % (11.6-14.6)
[2020-10-24 11:07] LABS: CHLORIDE 105 mEq/L (98-107)
[2020-10-24 12:23] LABS: PLATELET ESTIMATE NORMAL
[2020-10-24] MEDS: ENOXAPARIN 30MG/0.3ML SYR SUBCUT SCH ×2 (17:42→20:54)
[2020-10-25] VITALS (12 sets, daily range): BP systolic 88–144; BP diastolic 13–68
[2020-10-25] MEDS: TEMAZEPAM 15MG CAPSULE PO PRN (00:23)
[2020-10-25] MEDS: IPRATROPIUM/ALBUTEROL 0.5-3(2.5)MG/3ML NEB HHN SCH ×4 (02:19→21:47)
[2020-10-25] MEDS: METHYLPREDNISOLONE SOD SUCC 40 MG/ML VIAL IV SCH ×2 (09:13→21:39)
[2020-10-25] MEDS: ASCORBIC ACID 500 MG TABLET PO SCH ×2 (09:13→21:39)
[2020-10-25] MEDS: METOPROLOL TARTRATE 50MG TABLET PO SCH ×2 (09:13→21:40)
[2020-10-25] MEDS: ENOXAPARIN 30MG/0.3ML SYR SUBCUT SCH ×2 (09:14→21:39)
[2020-10-26] VITALS (8 sets, daily range): BP systolic 92–112; BP diastolic 43–72
[2020-10-26] MEDS: TEMAZEPAM 15MG CAPSULE PO PRN (00:02)
[2020-10-26] MEDS: IPRATROPIUM/ALBUTEROL 0.5-3(2.5)MG/3ML NEB HHN SCH ×4 (02:39→20:40)
[2020-10-26] MEDS: ASCORBIC ACID 500 MG TABLET PO SCH ×2 (08:45→21:06)
[2020-10-26] MEDS: PREDNISONE 20MG TABLET PO SCH (08:45)
[2020-10-26] MEDS: ENOXAPARIN 30MG/0.3ML SYR SUBCUT SCH ×2 (08:47→21:06)
[2020-10-26] MEDS: METOPROLOL TARTRATE 50MG TABLET PO SCH ×2 (08:50→21:06)
[2020-10-27] VITALS (13 sets, daily range): BP systolic 91–125; BP diastolic 46–75
[2020-10-27] MEDS: IPRATROPIUM/ALBUTEROL 0.5-3(2.5)MG/3ML NEB HHN SCH ×4 (02:28→20:50)
[2020-10-27] MEDS: TEMAZEPAM 15MG CAPSULE PO PRN (02:39)
[2020-10-27] MEDS: ERGOCALCIFEROL 50000UNITS CAPSULE PO SCH (09:18)
[2020-10-27] MEDS: ENOXAPARIN 30MG/0.3ML SYR SUBCUT SCH ×2 (09:18→21:21)
[2020-10-27] MEDS: METOPROLOL TARTRATE 50MG TABLET PO SCH ×2 (09:18→21:00)
[2020-10-27] MEDS: ASCORBIC ACID 500 MG TABLET PO SCH ×2 (09:18→21:21)
[2020-10-27] MEDS: PREDNISONE 20MG TABLET PO SCH (09:18)
[2020-10-27] MEDS ORDERED: SODIUM CHLORIDE 0.9% 500 ML IV ONE (10:15)
[2020-10-27 13:15] LABS: BASOPHILS % 0.3 % (0.0-2.0); EOSINOPHILS % 4.7 % (0.0-5.0); HEMATOCRIT. 41.7 % (42.0-52.0); HEMOGLOBIN. 13.8 g/dL (14.0-18.0); LYMPHOCYTES % 7.9 % (20.0-50.0); MEAN CORPUSCULAR VOLUME 87.5 fL (80.0-94.0); MEAN PLATELET VOLUME 8.2 fl (7.4-10.4); MONOCYTES % 4.1 % (2.0-8.0); PLATELET 200 x1000/uL (130-400); RED BLOOD CELL COUNT 4.76 mill/uL (4.7-6.1); RED CELL DISTRIBUTION WIDTH 15.4 % (11.6-14.6)
[2020-10-27 13:23] LABS: CHLORIDE 106 mEq/L (98-107)
[2020-10-28] VITALS (17 sets, daily range): BP systolic 94–137; BP diastolic 47–73
[2020-10-28] MEDS: IPRATROPIUM/ALBUTEROL 0.5-3(2.5)MG/3ML NEB HHN SCH ×4 (02:35→20:15)
[2020-10-28] MEDS: ASCORBIC ACID 500 MG TABLET PO SCH ×2 (10:48→21:21)
[2020-10-28] MEDS: ENOXAPARIN 30MG/0.3ML SYR SUBCUT SCH ×2 (10:48→21:21)
[2020-10-28] MEDS: PREDNISONE 20MG TABLET PO SCH (10:49)
[2020-10-28] MEDS: METOPROLOL TARTRATE 50MG TABLET PO SCH ×2 (10:49→21:21)
[2020-10-29] VITALS (12 sets, daily range): BP systolic 92–112; BP diastolic 45–68
[2020-10-29] MEDS: IPRATROPIUM/ALBUTEROL 0.5-3(2.5)MG/3ML NEB HHN SCH ×4 (02:15→21:08)
[2020-10-29] MEDS: TEMAZEPAM 15MG CAPSULE PO PRN ×2 (03:18→22:46)
[2020-10-29] MEDS: METOPROLOL TARTRATE 50MG TABLET PO SCH ×2 (09:00→20:26)
[2020-10-29] MEDS: PREDNISONE 20MG TABLET PO SCH (09:47)
[2020-10-29] MEDS: ASCORBIC ACID 500 MG TABLET PO SCH ×2 (09:47→20:25)
[2020-10-29] MEDS: ENOXAPARIN 30MG/0.3ML SYR SUBCUT SCH ×2 (09:48→20:26)
[2020-10-30] VITALS (12 sets, daily range): BP systolic 92–113; BP diastolic 44–68
[2020-10-30] MEDS: IPRATROPIUM/ALBUTEROL 0.5-3(2.5)MG/3ML NEB HHN SCH ×4 (02:18→20:26)
[2020-10-30] MEDS: METOPROLOL TARTRATE 50MG TABLET PO SCH ×2 (08:07→21:00)
[2020-10-30] MEDS: ENOXAPARIN 30MG/0.3ML SYR SUBCUT SCH ×2 (08:08→21:28)
[2020-10-30] MEDS: PREDNISONE 20MG TABLET PO SCH (08:09)
[2020-10-30] MEDS: ASCORBIC ACID 500 MG TABLET PO SCH ×2 (08:13→21:27)
[2020-10-30] MEDS: TEMAZEPAM 15MG CAPSULE PO PRN (23:33)
[2020-10-31] VITALS (12 sets, daily range): BP systolic 96–121; BP diastolic 40–71
[2020-10-31] MEDS: IPRATROPIUM/ALBUTEROL 0.5-3(2.5)MG/3ML NEB HHN SCH ×4 (01:32→20:57)
[2020-10-31] MEDS: ASCORBIC ACID 500 MG TABLET PO SCH ×2 (08:57→22:55)
[2020-10-31] MEDS: PREDNISONE 20MG TABLET PO SCH (08:57)
[2020-10-31] MEDS: ENOXAPARIN 30MG/0.3ML SYR SUBCUT SCH ×2 (08:57→22:52)
[2020-10-31] MEDS: METOPROLOL TARTRATE 50MG TABLET PO SCH ×2 (08:58→21:00)
[2020-10-31 09:23] LABS: BG BASE EXCESS 3.3 mmol/L (-2.0-2.0); BG DEOXYHEMOGLOBIN 6.4 % (0.0-5.0); BG FRACTION INSPIRED OXYGEN 85; BG HCO3 ACT 27.4 mmol/L (22.0-26.0); BG METHEMOGLOBIN 0.3 % (0.0-1.5); BG OXYGEN SATURATION 93.5 % (92.0-98.5); BG OXYHEMOGLOBIN 92.3 % (94.0-97.0); BG PH 7.454 (7.350-7.450); BG PO2 62.1 mmHg (75.0-100.0); BG SAMPLE SITE RIGHT RADIAL; BG VENT MODE HIGH FLOW
[2020-11-01] VITALS (12 sets, daily range): BP systolic 89–115; BP diastolic 52–78
[2020-11-01] MEDS: IPRATROPIUM/ALBUTEROL 0.5-3(2.5)MG/3ML NEB HHN SCH ×4 (01:33→20:08)
[2020-11-01] MEDS: ASCORBIC ACID 500 MG TABLET PO SCH ×2 (10:41→21:34)
[2020-11-01] MEDS: METOPROLOL TARTRATE 50MG TABLET PO SCH ×2 (10:41→21:00)
[2020-11-01] MEDS: PREDNISONE 20MG TABLET PO SCH (10:41)
[2020-11-01] MEDS: ENOXAPARIN 30MG/0.3ML SYR SUBCUT SCH ×2 (10:42→21:34)
[2020-11-02] VITALS (12 sets, daily range): BP systolic 94–136; BP diastolic 51–77
[2020-11-02] MEDS: IPRATROPIUM/ALBUTEROL 0.5-3(2.5)MG/3ML NEB HHN SCH ×4 (01:45→20:33)
[2020-11-02] MEDS: TEMAZEPAM 15MG CAPSULE PO PRN (02:59)
[2020-11-02] MEDS: PREDNISONE 20MG TABLET PO SCH (07:51)
[2020-11-02] MEDS: ENOXAPARIN 30MG/0.3ML SYR SUBCUT SCH ×2 (07:51→21:37)
[2020-11-02] MEDS: ASCORBIC ACID 500 MG TABLET PO SCH ×2 (07:51→21:36)
[2020-11-02] MEDS: METOPROLOL TARTRATE 50MG TABLET PO SCH ×2 (07:51→21:00)
[2020-11-03] VITALS (13 sets, daily range): BP systolic 82–122; BP diastolic 48–67
[2020-11-03] MEDS: IPRATROPIUM/ALBUTEROL 0.5-3(2.5)MG/3ML NEB HHN SCH ×4 (01:40→20:23)
[2020-11-03] MEDS: TEMAZEPAM 15MG CAPSULE PO PRN (02:01)
[2020-11-03] MEDS: ASCORBIC ACID 500 MG TABLET PO SCH ×2 (08:35→21:24)
[2020-11-03] MEDS: ENOXAPARIN 30MG/0.3ML SYR SUBCUT SCH ×2 (08:36→21:23)
[2020-11-03] MEDS: PREDNISONE 20MG TABLET PO SCH (08:36)
[2020-11-03] MEDS: METOPROLOL TARTRATE 50MG TABLET PO SCH ×2 (08:36→21:24)
[2020-11-03] MEDS: ERGOCALCIFEROL 50000UNITS CAPSULE PO SCH (08:41)
[2020-11-03] MEDS: ACETAMINOPHEN 325MG TABLET PO PRN (17:52)
[2020-11-04] VITALS (12 sets, daily range): BP systolic 99–118; BP diastolic 55–78
[2020-11-04] MEDS: IPRATROPIUM/ALBUTEROL 0.5-3(2.5)MG/3ML NEB HHN SCH ×4 (02:06→20:59)
[2020-11-04] MEDS: PREDNISONE 20MG TABLET PO SCH (09:27)
[2020-11-04] MEDS: METOPROLOL TARTRATE 50MG TABLET PO SCH ×2 (09:28→21:18)
[2020-11-04] MEDS: ENOXAPARIN 30MG/0.3ML SYR SUBCUT SCH ×2 (09:29→21:18)
[2020-11-04] MEDS: SULFAMETHOXAZOLE/TRIMETHOPRIM 800/160MG TABLET PO SCH (16:59)
[2020-11-05] VITALS (12 sets, daily range): BP systolic 99–110; BP diastolic 54–75
[2020-11-05] MEDS: IPRATROPIUM/ALBUTEROL 0.5-3(2.5)MG/3ML NEB HHN SCH ×4 (01:56→20:51)
[2020-11-05] MEDS: ACETAMINOPHEN 325MG TABLET PO PRN (01:59)
[2020-11-05 06:47] LABS: BASOPHILS % 0.5 % (0.0-2.0); EOSINOPHILS % 1.3 % (0.0-5.0); HEMATOCRIT. 38.2 % (42.0-52.0); HEMOGLOBIN. 12.7 g/dL (14.0-18.0); LYMPHOCYTES % 23.8 % (20.0-50.0); MEAN CORPUSCULAR HEMOGLOBIN 29.3 pg (28.0-32.0); MEAN CORPUSCULAR VOLUME 88.1 fL (80.0-94.0); MEAN PLATELET VOLUME 8.6 fl (7.4-10.4); MONOCYTES % 7.2 % (2.0-8.0); NEUTROPHILS % 67.2 % (40.0-76.0); PLATELET 242 x1000/uL (130-400); RED BLOOD CELL COUNT 4.33 mill/uL (4.7-6.1); RED CELL DISTRIBUTION WIDTH 15.1 % (11.6-14.6)
[2020-11-05 07:19] LABS: CHLORIDE 103 mEq/L (98-107)
[2020-11-05] MEDS: ENOXAPARIN 30MG/0.3ML SYR SUBCUT SCH (08:23)
[2020-11-05] MEDS: PREDNISONE 20MG TABLET PO SCH (08:23)
[2020-11-05] MEDS: METOPROLOL TARTRATE 50MG TABLET PO SCH ×2 (08:26→21:00)
[2020-11-05] MEDS: SULFAMETHOXAZOLE/TRIMETHOPRIM 800/160MG TABLET PO SCH (17:24)
[2020-11-05] MEDS: GUAIFENESIN 600MG ER TABLET PO SCH (21:08)
[2020-11-05] MEDS: ENOXAPARIN 40MG/0.4ML SYR SUBCUT SCH (21:11)
[2020-11-06] VITALS (12 sets, daily range): BP systolic 92–116; BP diastolic 49–73
[2020-11-06] MEDS: IPRATROPIUM/ALBUTEROL 0.5-3(2.5)MG/3ML NEB HHN SCH ×4 (01:40→20:06)
[2020-11-06] MEDS: TEMAZEPAM 15MG CAPSULE PO PRN (02:00)
[2020-11-06] MEDS: ENOXAPARIN 40MG/0.4ML SYR SUBCUT SCH ×2 (08:36→20:50)
[2020-11-06] MEDS: PREDNISONE 20MG TABLET PO SCH (08:36)
[2020-11-06] MEDS: GUAIFENESIN 600MG ER TABLET PO SCH ×2 (08:36→20:50)
[2020-11-06] MEDS: METOPROLOL TARTRATE 50MG TABLET PO SCH ×2 (08:36→21:00)
[2020-11-06] MEDS: SULFAMETHOXAZOLE/TRIMETHOPRIM 800/160MG TABLET PO SCH (16:32)
[2020-11-07] VITALS (12 sets, daily range): BP systolic 98–116; BP diastolic 55–90
[2020-11-07] MEDS: IPRATROPIUM/ALBUTEROL 0.5-3(2.5)MG/3ML NEB HHN SCH ×4 (02:12→20:42)
[2020-11-07] MEDS: TEMAZEPAM 15MG CAPSULE PO PRN (02:45)
[2020-11-07] MEDS: METOPROLOL TARTRATE 50MG TABLET PO SCH ×2 (08:41→20:31)
[2020-11-07] MEDS: ENOXAPARIN 40MG/0.4ML SYR SUBCUT SCH ×2 (08:54→20:30)
[2020-11-07] MEDS: PREDNISONE 20MG TABLET PO SCH (08:54)
[2020-11-07] MEDS: GUAIFENESIN 600MG ER TABLET PO SCH ×2 (08:54→20:30)
[2020-11-07] MEDS: SULFAMETHOXAZOLE/TRIMETHOPRIM 800/160MG TABLET PO SCH (15:37)
[2020-11-08] VITALS (12 sets, daily range): BP systolic 93–113; BP diastolic 19–66
[2020-11-08] MEDS: IPRATROPIUM/ALBUTEROL 0.5-3(2.5)MG/3ML NEB HHN SCH ×4 (02:53→20:46)
[2020-11-08] MEDS: TEMAZEPAM 15MG CAPSULE PO PRN (03:18)
[2020-11-08] MEDS: METOPROLOL TARTRATE 50MG TABLET PO SCH ×2 (09:00→20:19)
[2020-11-08] MEDS: ENOXAPARIN 40MG/0.4ML SYR SUBCUT SCH (09:34)
[2020-11-08] MEDS: PREDNISONE 20MG TABLET PO SCH (09:34)
[2020-11-08] MEDS: GUAIFENESIN 600MG ER TABLET PO SCH ×2 (09:35→20:19)
[2020-11-08] MEDS: SULFAMETHOXAZOLE/TRIMETHOPRIM 800/160MG TABLET PO SCH (15:54)
[2020-11-08] MEDS: ENOXAPARIN 30MG/0.3ML SYR SUBCUT SCH (20:19)
[2020-11-09] VITALS (11 sets, daily range): BP systolic 98–113; BP diastolic 50–70
[2020-11-09] MEDS: IPRATROPIUM/ALBUTEROL 0.5-3(2.5)MG/3ML NEB HHN SCH ×4 (02:04→21:00)
[2020-11-09] MEDS: TEMAZEPAM 15MG CAPSULE PO PRN (02:28)
[2020-11-09] MEDS: PREDNISONE 20MG TABLET PO SCH (09:28)
[2020-11-09] MEDS: GUAIFENESIN 600MG ER TABLET PO SCH ×2 (09:29→21:06)
[2020-11-09] MEDS: METOPROLOL TARTRATE 50MG TABLET PO SCH ×2 (09:29→21:00)
[2020-11-09] MEDS: ENOXAPARIN 30MG/0.3ML SYR SUBCUT SCH (09:30)
[2020-11-09] MEDS: SULFAMETHOXAZOLE/TRIMETHOPRIM 800/160MG TABLET PO SCH (15:27)
[2020-11-10] VITALS (11 sets, daily range): BP systolic 97–113; BP diastolic 45–68
[2020-11-10] MEDS: IPRATROPIUM/ALBUTEROL 0.5-3(2.5)MG/3ML NEB HHN SCH ×4 (01:14→21:08)
[2020-11-10] MEDS: TEMAZEPAM 15MG CAPSULE PO PRN ×2 (01:37→21:20)
[2020-11-10] MEDS: GUAIFENESIN 600MG ER TABLET PO SCH ×2 (08:58→20:17)
[2020-11-10] MEDS: METOPROLOL TARTRATE 50MG TABLET PO SCH ×2 (08:59→20:17)
[2020-11-10] MEDS: PREDNISONE 10MG TABLET PO SCH (08:59)
[2020-11-10] MEDS: ENOXAPARIN 40MG/0.4ML SYR SUBCUT SCH (08:59)
[2020-11-11] VITALS (11 sets, daily range): BP systolic 93–121; BP diastolic 51–76
[2020-11-11] MEDS: IPRATROPIUM/ALBUTEROL 0.5-3(2.5)MG/3ML NEB HHN SCH ×4 (02:20→21:38)
[2020-11-11] MEDS: GUAIFENESIN 600MG ER TABLET PO SCH ×2 (08:54→20:22)
[2020-11-11] MEDS: METOPROLOL TARTRATE 50MG TABLET PO SCH ×2 (08:54→20:22)
[2020-11-11] MEDS: PREDNISONE 10MG TABLET PO SCH (08:54)
[2020-11-11] MEDS: ENOXAPARIN 40MG/0.4ML SYR SUBCUT SCH (08:54)
[2020-11-11 16:11] LABS: BG BASE EXCESS 1.7 mmol/L (-2.0-2.0); BG CARBOXYHEMOGLOBIN 0.4 % (0.5-1.5); BG DEOXYHEMOGLOBIN 13.7 % (0.0-5.0); BG FRACTION INSPIRED OXYGEN 21; BG HCO3 ACT 24.5 mmol/L (22.0-26.0); BG METHEMOGLOBIN 0.1 % (0.0-1.5); BG OXYGEN SATURATION 86.2 % (92.0-98.5); BG OXYHEMOGLOBIN 85.8 % (94.0-97.0); BG PCO2 33.4 mmHg (35.0-45.0); BG PH 7.484 (7.350-7.450); BG PO2 45.7 mmHg (75.0-100.0); BG SAMPLE SITE RIGHT RADIAL; BG TOTAL HEMOGLOBIN 14.6 g/dL (12.0-18.0); BG VENT MODE ROOM AIR
[2020-11-12] VITALS: BP 113/91
[2020-11-12] MEDS: IPRATROPIUM/ALBUTEROL 0.5-3(2.5)MG/3ML NEB HHN SCH ×4 (02:03→21:00)
[2020-11-12 04:00] VITALS: BP 106/66
[2020-11-12 06:55] LABS: HEMATOCRIT. 39.2 % (42.0-52.0); HEMOGLOBIN. 13.1 g/dL (14.0-18.0); MEAN CORPUSCULAR HEMOGLOBIN 29.7 pg (28.0-32.0); MEAN CORPUSCULAR VOLUME 89.1 fL (80.0-94.0); MEAN PLATELET VOLUME 8.5 fl (7.4-10.4); PLATELET 296 x1000/uL (130-400); RED CELL DISTRIBUTION WIDTH 15.8 % (11.6-14.6)
[2020-11-12 07:36] LABS: CHLORIDE 107 mEq/L (98-107)
[2020-11-12 08:00] VITALS: BP 106/63
[2020-11-12] MEDS: METOPROLOL TARTRATE 50MG TABLET PO SCH ×2 (09:00→21:27)
[2020-11-12] MEDS: GUAIFENESIN 600MG ER TABLET PO SCH ×2 (09:57→21:27)
[2020-11-12] MEDS: ENOXAPARIN 40MG/0.4ML SYR SUBCUT SCH (09:58)
[2020-11-12 12:00] VITALS: BP 116/69
[2020-11-12] MEDS: PREDNISONE 10MG TABLET PO SCH (13:44)
[2020-11-12 16:00] VITALS: BP 104/73
[2020-11-12 16:25] LABS: PLATELET ESTIMATE NORMAL
[2020-11-12 20:00] VITALS: BP 110/74
[2020-11-13] VITALS: BP 109/64
[2020-11-13] MEDS: IPRATROPIUM/ALBUTEROL 0.5-3(2.5)MG/3ML NEB HHN SCH ×4 (00:32→20:58)
[2020-11-13] MEDS: TEMAZEPAM 15MG CAPSULE PO PRN (00:53)
[2020-11-13 04:00] VITALS: BP 101/64
[2020-11-13 08:00] VITALS: BP 111/71
[2020-11-13] MEDS: GUAIFENESIN 600MG ER TABLET PO SCH ×2 (08:30→21:20)
[2020-11-13] MEDS: ENOXAPARIN 40MG/0.4ML SYR SUBCUT SCH (08:30)
[2020-11-13] MEDS: PREDNISONE 10MG TABLET PO SCH (08:30)
[2020-11-13 12:00] VITALS: BP 112/72
[2020-11-13 16:00] VITALS: BP 106/65
[2020-11-13 20:00] VITALS: BP 111/75
[2020-11-14] VITALS: BP 100/62
[2020-11-14] MEDS: IPRATROPIUM/ALBUTEROL 0.5-3(2.5)MG/3ML NEB HHN SCH ×4 (02:10→20:41)
[2020-11-14] MEDS: TEMAZEPAM 15MG CAPSULE PO PRN ×2 (03:20→21:07)
[2020-11-14 04:00] VITALS: BP 108/85
[2020-11-14 08:00] VITALS: BP 106/67
[2020-11-14] MEDS: ENOXAPARIN 40MG/0.4ML SYR SUBCUT SCH (08:54)
[2020-11-14] MEDS: GUAIFENESIN 600MG ER TABLET PO SCH ×2 (08:54→20:25)
[2020-11-14] MEDS: PREDNISONE 10MG TABLET PO SCH (08:55)
[2020-11-14 12:00] VITALS: BP 115/78
[2020-11-14 16:00] VITALS: BP 107/69
[2020-11-14 20:00] VITALS: BP 109/71
[2020-11-14] MEDS: ACETAMINOPHEN 325MG TABLET PO PRN (20:25)
[2020-11-15] VITALS: BP 106/70
[2020-11-15] MEDS: IPRATROPIUM/ALBUTEROL 0.5-3(2.5)MG/3ML NEB HHN SCH ×5 (01:41→20:03)
[2020-11-15 04:00] VITALS: BP 110/69
[2020-11-15 07:58] VITALS: BP 104/66
[2020-11-15] MEDS: ENOXAPARIN 40MG/0.4ML SYR SUBCUT SCH (09:02)
[2020-11-15] MEDS: PREDNISONE 5MG TABLET PO SCH (09:02)
[2020-11-15] MEDS: GUAIFENESIN 600MG ER TABLET PO SCH ×2 (09:02→20:50)
[2020-11-15 12:00] VITALS: BP 107/77
[2020-11-15 16:00] VITALS: BP 102/62
[2020-11-15 20:00] VITALS: BP 111/65
[2020-11-15] MEDS: TEMAZEPAM 15MG CAPSULE PO PRN (20:50)
[2020-11-16] VITALS: BP 107/69
[2020-11-16] MEDS: IPRATROPIUM/ALBUTEROL 0.5-3(2.5)MG/3ML NEB HHN SCH (01:51)
[2020-11-16 04:00] VITALS: BP 108/68
[2020-11-16 07:31] LABS: HEMATOCRIT. 40.6 % (42.0-52.0); HEMOGLOBIN. 13.4 g/dL (14.0-18.0); MEAN CORPUSCULAR HEMOGLOBIN 29.4 pg (28.0-32.0); MEAN CORPUSCULAR VOLUME 88.8 fL (80.0-94.0); MEAN PLATELET VOLUME 8.6 fl (7.4-10.4); PLATELET 298 x1000/uL (130-400); RED BLOOD CELL COUNT 4.57 mill/uL (4.7-6.1); RED CELL DISTRIBUTION WIDTH 15.8 % (11.6-14.6)
[2020-11-16 08:00] VITALS: BP 100/70
[2020-11-16 08:16] LABS: CHLORIDE 108 mEq/L (98-107)
[2020-11-16 08:31] LABS: CREATINE KINASE 22 IU/L (39-308)
[2020-11-16] MEDS: GUAIFENESIN 600MG ER TABLET PO SCH (09:41)
[2020-11-16] MEDS: PREDNISONE 5MG TABLET PO SCH (09:41)
[2020-11-16] MEDS: ENOXAPARIN 40MG/0.4ML SYR SUBCUT SCH (09:43)
[2020-11-16 12:00] VITALS: BP 105/57
[2020-11-16 12:20] VITALS: BP 105/57
[2020-11-17 10:02] LABS: PLATELET ESTIMATE NORMAL
== END 2020-11-16 13:20 | disposition home or self-care (01) | DRG 720 ==
LOC: ER 20:11 → 7WST 21:36 → ENRESERV 23:48 → EDBEDREQSVC 09-23 00:01 → EDBEDREQTM 09-23 00:01 → ENRESERV 09-23 00:18 → 5EST 09-23 00:45 → 6EST 11-11 18:30
PROVIDERS: ADMIT Internal Medicine; ATTEND Internal Medicine
DX: A41.89 Other specified sepsis (principal); U07.1 COVID-19; J96.01 Acute respiratory failure with hypoxia; J12.82 Pneumonia due to coronavirus disease 2019; F41.1 Generalized anxiety disorder; R74.01 Elevation of levels of liver transaminase levels; I10 Essential (primary) hypertension; Z88.0 Allergy status to penicillin; Z95.1 Presence of aortocoronary bypass graft; Z79.899 Other long term (current) drug therapy; R00.0 Tachycardia, unspecified
CPT/HCPCS: 36415; 36600; 71045; 80048; 80053; 81003; 82306; 82375; 82550; 82728; 82805; 83036; 83605; 83735; 83880; 84100; 84145; 84443; 84484; 85025; 85379; 85651; 86140; 86141; 87426; 87804; 93005; 94003; 94640; 94660; 97110; 97116; 97162; 97166; 97530; 97535; 99291; J0456; J0696; J1100; J1200; J1650; J2920; J7040; J7060; J7512; U0003

== ENCOUNTER 2022-09-08 05:21 | Emergency (ER) | payer MEDICAID ==
[~2022-09-08] VITALS: Ht 170.2 cm; Wt 85.1 kg
[2022-09-08 05:43] VITALS: BP 132/73
[2022-09-08] MEDS ORDERED: CYCL10TA21 MT (09:21)
[2022-09-08] MEDS ORDERED: DICL75TA5 MT (09:21)
== END 2022-09-08 09:40 | disposition home or self-care (01) ==
LOC: ER 05:21
DX: M54.59 Other low back pain (principal)
CPT/HCPCS: 99281; 99283

== ENCOUNTER 2023-06-10 20:42 | Emergency (ER) | payer MEDICAID ==
[~2023-06-10] VITALS: Ht 167.6 cm; Wt 84.0 kg
[~2023-06-10 20:42] MED LIST: CYCL10TA21 MT; DICL75TA5 MT
[2023-06-10 21:10] VITALS: BP 126/75; RESP 16; TEMP 98.8; O2SAT 96
[2023-06-10 21:13] VITALS: PULSE 108
[2023-06-10] MEDS ORDERED: KETOROLAC 60MG/2ML VIAL IM STA (22:22)
[2023-06-10] MEDS ORDERED: ONDANSETRON HCL 4MG/2ML INJ IM STA (22:22)
[2023-06-10] MEDS ORDERED: D-ME473S50 PO (23:45)
[2023-06-10] MEDS ORDERED: NAPR-681 PO (23:45)
[2023-06-10] MEDS ORDERED: ALBU18HF2 IH (23:45)
== END 2023-06-11 00:01 | disposition home or self-care (01) ==
LOC: ER 20:42
DX: J06.9 Acute upper respiratory infection, unspecified (principal); R51.9 Headache, unspecified; Z20.822 Contact with and (suspected) exposure to COVID-19; Z88.0 Allergy status to penicillin
CPT/HCPCS: 99284; 71045; 87426; 87804 ×2; 96372; J1885; J2405; C9803